=== PATIENT | female | born 1980 | race African-American/Black ===

== ENCOUNTER 2024-09-13 09:41 | Emergency (ER) | payer SELFPAY ==
[~2024-09-13] VITALS: Ht 162.6 cm; Wt 90.0 kg
[2024-09-13 09:47] VITALS: BP 132/68; PULSE 89; RESP 16; TEMP 36.7; O2SAT 100
[2024-09-13] MEDS ORDERED: ACET-2708 MT (12:02)
== END 2024-09-13 12:24 | disposition home or self-care (01) ==
LOC: ER 09:41
DX: M25.561 Pain in right knee (principal); J45.909 Unspecified asthma, uncomplicated
CPT/HCPCS: 73560; 99283; Z7610